=== PATIENT | male | born 1995 | race Caucasian/White ===

== ENCOUNTER 2017-11-17 21:02 | Emergency (ER) | payer OTHER ==
[2017-11-17] MEDS ORDERED: Midazolam* 1 MG/ML 5 ML VIAL (5 MG) SLOW PUSH ONE (21:55)
[2017-11-17] MEDS ORDERED: NS 0.9% 1000 ML* 1,000 ML IV ONE (21:56)
[2017-11-17] MEDS ORDERED: fentaNYL* 50 MCG/ML 2 ML VIAL (100 MCG VIAL) IV SLOW PU ONE (21:56)
[2017-11-17] MEDS ORDERED: Midazolam* 1 MG/ML 10 ML VIAL (10 MG) ONE (22:13)
[2017-11-17] MEDS ORDERED: Midazolam* 1 MG/ML 10 ML VIAL (10 MG) IV ONE (22:34)
--- NOTE | 2017-11-17 23:25 | ED ---
Sanjiv Bianchi Gabriel, scribed for Ghulam Shepherd MD on 11/17/17 at 2150 . 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 The patient rates the pain 10/10 in severity. Patient reports numbness and tingling in his finger. Patient reports that he was snow skiing and made a jump, coming down landing on right shoulder. - History of Current Complaint Chief Complaint: EDShoulderClavicleInj Stated Complaint: RT SHOULDER INJURY Time Seen by Provider: 11/17/17 21:37 Hx Obtained From: Patient Mechanism Of Injury: Blunt Trauma Timing: Constant Severity Initially: Severe Severity Currently: Severe Pain Location: Shoulder - right Associated Signs & Symptoms: Positive: Numbness/Tingling - Allergies/Home Medications Allergies/Adverse Reactions: Allergies Allergy/AdvReac Type Severity Reaction Status Date / Time No Known Allergies Allergy Unverified 11/28/13 15:15 PMH/Surg Hx/FS Hx/Imm Hx Endocrine/Hematology History: Denies: Hx Diabetes, Hx Thyroid Disease Cardiovascular History: Reports: Hx Hypertension Denies: Hx Hypercholesterolemia, Hx Peripheral Vascular Disease Musculoskeletal History: Denies: Hx Arthritis, Hx Osteoporosis Sensory History: Denies: Hx Cataracts, Hx Contacts or Glasses, Hx Glaucoma Opthamlomology History: Denies: Hx Cataracts, Hx Contacts or Glasses, Hx Glaucoma Neurological History: Denies: Hx Headaches, Hx Seizures, Hx Transient Ischemic Attacks (TIA) Psychiatric History: Denies: Hx Anxiety, Hx Depression Infectious Disease History: No Infectious Disease History: Denies: Traveled Outside the [place] in Last 30 Days - Family History Known Family History: Negative: Hypertension, Seizure Disorder - Social History Lives: With Family Alcohol Use: Occasionally Hx Substance Use: No Hx Tobacco Use: No Smoking Status (MU): Never Smoked Tobacco Review of Systems Positive: Other - pain in right shoulder Positive: Numbness - and tingling All Other Systems Reviewed And Are Negative: Yes Physical Exam - Summary Physical Exam Summary: VITAL SIGNS: Reviewed. GENERAL: Patient is a well-developed and nourished male who is lying comfortable in the stretcher. Patient is not in any acute respiratory distress. HEAD AND FACE: No signs of trauma. No ecchymosis, hematomas or skull depressions. No sinus tenderness. EYES: PERRLA, EOMI x 2, No injected conjunctiva, no nystagmus. EARS: Hearing grossly intact. Ear canals and tympanic membranes are within normal limits. MOUTH: Oropharynx within normal limits. NECK: Supple, trachea is midline, no adenopathy, no JVD, no carotid bruit, no c- spine tenderness, neck with full ROM. CHEST: Symmetric, no tenderness at palpation LUNGS: Clear to auscultation bilaterally. No wheezing or crackles. CVS: Regular rate and rhythm, S1 and S2 present, no murmurs or gallops appreciated. ABDOMEN: Soft, non-tender. No signs of distention. No rebound no guarding, and no masses palpated. Bowel sounds are normal. EXTREMITIES: deformity over the right shoulder with compression. Loss of conture of the right should. Neurological and cardiovascular intact. NEURO: Alert and oriented x 3. No acute neurological deficits. Speech is normal and follows commands. SKIN: Dry and warm Triage Information Reviewed: Yes Vital Signs On Initial Exam: Initial Vitals Temp Pulse Resp BP Pulse Ox 100.4 F 96 18 143/97 98 11/17/17 21:18 11/17/17 21:18 11/17/17 21:18 11/17/17 21:18 11/17/17 21:18 Vital Signs Reviewed: Yes Procedures - Joint Reduction Joint Reduction Site: shoulder (R) Conscious Sedation: Yes Reduction Attempts: 1 Pre-Procedure NV Exam: Yes Post Joint Reduction Film: joint reduced Diagnostics - Vital Signs Vital Signs Temp Pulse Resp BP Pulse Ox 11/17/17 21:18 100.4 F 96 18 143/97 98 - Laboratory Lab Statement: Any lab studies that have been ordered have been reviewed, and results considered in the medical decision making process. 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 The patient rates the pain 10/10 in severity. Patient reports numbness and tingling in his finger. Patient reports that he was snow skiing and made a jump , coming down landing on right shoulder. Shoulder Xray reveals, anterior shoulder dislocation. Shoulder Xray post reduction reveals, shoulder was successfully reduced no fracture. In the ED course the patient was given fentanyl, versed, and IV fluids. Patient will be discharged with a sling and follow up from Dr. Castellon. The patient is agreeable with this plan. - Diagnoses Provider Diagnoses: Anterior dislocation of right shoulder Discharge - Discharge Plan Condition: Stable Disposition: HOME Patient Education Materials: Shoulder Dislocation (ED) Referrals: Dayton Castellon MD [Medical Doctor] - 2 Days Nithin Stanley MD [Medical Doctor] - Additional Instructions: RETURN TO EMERGENCY DEPARTMENT FOR ANY NEW OR WORSENING SYMPTOMS The documentation as recorded by the Sanjiv asif Gabriel accurately reflects the service I personally performed and the decisions made by me, Ghulam Shepherd MD.
[2017-11-17 23:27] VITALS: BP 145/90
--- NOTE | 2017-11-18 07:14 | RAD ---
INDICATION: Right shoulder pain. TECHNIQUE: 4 views of the right shoulder were obtained. FINDINGS: There is anterior subcoracoid dislocation of the humeral head. There is a Hill-Sachs fracture present. IMPRESSION: ANTERIOR DISLOCATION OF THE HUMERUS WITH HILL-SACHS FRACTURE.
--- NOTE | 2017-11-18 07:23 | RAD ---
INDICATION: Right shoulder dislocation status post external reduction. COMPARISON: Comparison is made with prior study from November 17, 2007. TECHNIQUE: 2 views of the right shoulder were obtained. FINDINGS: The patient is status post external reduction. The bones are in normal alignment. Again note is made of a Hill-Sachs fracture. IMPRESSION: 1. STATUS POST EXTERNAL REDUCTION. THE BONES ARE IN NORMAL ALIGNMENT. 2. HILL-SACHS FRACTURE.
== END 2017-11-17 23:35 | disposition home or self-care (01) ==
LOC: ED 21:02
DX: S43.004A Unspecified dislocation of right shoulder joint, initial encounter (principal); W00.9XXA Unspecified fall due to ice and snow, initial encounter; Y93.24 Activity, cross country skiing; Y92.89 Other specified places as the place of occurrence of the external cause; Z86.79 Personal history of other diseases of the circulatory system
CPT/HCPCS: 96374; 99283; J2250; J3010

== ENCOUNTER 2018-08-05 07:16 | Day surgery (SDC) | payer OTHER ==
[2018-08-05] MEDS ORDERED: Midazolam* 1 MG/ML 5 ML VIAL (5 MG) ONE (07:56)
[2018-08-05] MEDS ORDERED: Rocuronium* 10 MG/ML VIAL ONE (07:56)
[2018-08-05] MEDS ORDERED: fentaNYL* 50 MCG/ML 2 ML VIAL (100 MCG VIAL) ONE ×2 (07:56→11:08)
[2018-08-05] MEDS ORDERED: ceFAZolin 2 GM in NS PREMIX(*) 2 GM/100 ML BAG IVPB ONE (08:02)
[2018-08-05] MEDS ORDERED: EPINEPHRINE 1 MG/ML 1 ML VIAL ONE (08:05)
[2018-08-05] MEDS ORDERED: Bupivacaine 0.25% EPI 200,000* 30 ML SDV ONE (08:05)
[2018-08-05] MEDS ORDERED: ROPIVACAINE 5 MG/ML 30 ML BTL (0.5%) ONE ×2 (08:22→08:23)
[2018-08-05] MEDS ORDERED: Lidocaine 1%* 5 ML VIAL ONE ×2 (08:22→08:23)
[2018-08-05] MEDS ORDERED: Ondansetron INJ* 2 MG/ML VIAL IV PRN (09:59)
[2018-08-05] MEDS ORDERED: Naloxone* 0.4 MG/ML 1 ML VIAL IV PRN (09:59)
[2018-08-05] MEDS ORDERED: DiMENhydriNATE IV* 50 MG/ML VIAL IV PUSH PRN (09:59)
[2018-08-05] MEDS ORDERED: HYDROcodone/ACETAMIN 5-325 MG* 1 TAB PO PRN (09:59)
[2018-08-05] MEDS ORDERED: Acetaminophen TAB* 325 MG PO PRN (09:59)
[2018-08-05] MEDS ORDERED: Morphine INJ* 2 MG/ML 1 ML SYRINGE (TWO MG - NEW SYRINGE VERSION) IV PRN (09:59)
[2018-08-05] MEDS ORDERED: fentaNYL* 50 MCG/ML 2 ML VIAL (100 MCG VIAL) IV PRN (09:59)
[2018-08-05] MEDS ORDERED: Propofol* 10 MG/ML 20 ML BTL IV PUSH ONE (10:36)
[2018-08-05] MEDS ORDERED: Dexamethasone IV* 4 MG/ML 1 ML (4 MG) ONE (10:36)
[2018-08-05] MEDS ORDERED: Ondansetron INJ* 2 MG/ML VIAL ONE (10:52)
[2018-08-05] MEDS ORDERED: HYDROcodone/ACETAMIN 5-325 MG* 1 TAB ONE (12:24)
[2018-08-05 12:39] VITALS: BP 151/91
--- NOTE | 2018-08-07 12:36 | OP ---
OPERATIVE REPORT: DATE OF OPERATION: 08/05/18 DATE OF : 89 SURGEON: Dayton Castellon MD BLENDING TANK HELPER: KAYLAH Pringle A physician chemistry research assistant was required for the length of procedure for assistance with positioning, instr umentation, retraction, and closure. ANESTHESIOLOGIST: Dwayne Webster MD ANESTHESIA: General anesthesia, regional interscalene block anesthesia. PRE-OP DIAGNOSES: 1. Left shoulder recurrent anterior instability. 2. Left shoulder anterior labral tear. 3. Left shoulder Hill-Sachs humeral head deformity. POST-OP DIAGNOSES: 1. Left shoulder recurrent anterior instability. 2. Left shoulder anterior labral tear. 3. Left shoulder Hill-Sachs humeral head deformity. OPERATIVE PROCEDURE: Left shoulder arthroscopic anterior capsulolabral repair. INDICATIONS: The patient is a 23-year-old man, right-hand dominant, recent graduate at the [employer], who currently works for the [employer] and lives with his parents [facility], who presented to me in clinic with bilateral recurrent glenohumeral joint instability episodes. He had had 3 instability events with his left and 2 instability events with his right shoulder. Left shoulder instability events occurred with skiing, roughhousing, and swimming. MRI arthrogram showed a likely anterior labral tear and a Hill-Sachs deformity. I measured Hill-Sach s deformity of the left humeral head. While it was wide, approximately 22.5 mm on one slice, it was never deeper than 1 or 1.5 mm, below the 3-mm threshold generally quoted for remplissage. The patient opted for surgical management. I signed him up for an arthroscopic anterior labral repai r and possible remplissage procedure. I also consented him as well for a possible biceps tenodesis s hould there be a large superior labral tear or biceps injury. I discussed risks and potential complications of surgery including bleeding, infection, nerve or bloo d vessel injury, shoulder pain, stiffness, recurrence of instability. IV FLUIDS: 1000 cc crystalloid. ANTIBIOTICS: Ancef 2 g IV. [id number] TIME: 96 minutes. ARTHROSCOPIC FLUID UTILIZATION: Seven bags each with 3 L for a total of 21 L. SPECIMEN: None. IMPLANTS: Mitek Gryphon suture anchors x4. COMPLICATIONS: None. ESTIMATED BLOOD LOSS: Minimal. DESCRIPTION OF PROCEDURE: In preoperative holding, the patient signed a written consent. Operative extremity was marked in the preoperative holding. The patient underwent a regional interscalene bloc k. The patient was brought back to the operating room and placed supine on the operating room table. Sedated and intubated. An exam under anesthesia showed full range of motion. This was conducted a fter a mini time-out had been performed. Anterior apprehension tests produced no instability, no clu nk. A full abduction and external rotation position likewise produced no clunk. This provided addit ional support for not proceeding with a remplissage component to the procedure. The patient was converted to the lateral decubitus position. Villa bag was hardened. Axillary roll w as placed. All bony prominences were padded. The left shoulder was placed in longitudinal traction with the appropriate amount of forward flexion and abduction. I used 15 pounds. The left shoulder was prepped and draped. Surgical time-out was performed. Left shoulder was infuse d with 30 cc of normal saline using a spinal needle from posterior. I then established a posterior g lenohumeral joint portal. I started my diagnostic arthroscopy. No articular cartilage lesions. No clear wear of the anterior rim of the glenoid. I did inspect the humeral head Hill-Sachs deformity. It was not deeper than anticipated on preoperative imaging. Continued diagnostic arthroscopy. No significant superior labral tear or biceps pathology noted. I did note that the anterior labrum was at first difficult to appreciate. It had clearly medialized on the anterior glenoid rim, consistent with chronic tear and medialization, ALPSA. Introduced lateral traction faustino device, Manning and Nephew. I next made my anteroinferior portal reynaldo millan standard technique. This was done under direct visualization. I placed a 7-mm Arthrex plastic can nula in that location. I next placed my anterosuperior portal and placed my arthroscope through it. I next placed a new posterior portal and placed a 7-mm Arthrex cannula through it. I inspected derrelli n the Hill-Sachs deformity. I did not change my thoughts on it being mild and not requiring rempliss age. I evaluated the anterior labrum, which did appear torn and medialized. I loosened up the labrum using a Liberator device and an arthroscopic shaver, peeling it back off the labrum and freeing it up so that it would mobilize nicely. I prepared the bone as well with the arth roscopic shaver. I used a grasper and demonstrated that the labrum was sufficiently mobile to perfor m a good labral repair. While viewing from anterosuperior, I placed 4 Mitek Gryphon suture anchors from the anteroinferior po rtal. Each of those was doubly loaded but I removed 1 suture from each and placed 1 horizontal mattr ess stitch from each anchor. The first anchor, placed at the 6 o'clock position, I passed 1 stitch r etrograde from posterior and the other from anteroinferior. I used the Mitek Fenton suture passer wit shanti ELY metal to perform those horizontal mattress stitches. I placed the first 2 anchors through my anteroinferior portal, then I placed the third and fourth anchors through a percutaneous stab incisio n to get a better angle towards the glenoid surface. After 4 horizontal mattress stitches had been placed, I really liked the labral bumper that I created and the tautness of the anterior capsule. I made sure to get bites of both capsule and labrum with all of my passes with the Fenton suture passer. This repair had clearly moved the humeral head into a more centered position from anteroposterior on the glenoid. I next assessed the Hill-Sachs one additional time and decided that a remplissage again was not requi red. Removed fluid and instruments from the glenohumeral joint. Closed surgical incisions with figure-of- eight and twelve stitches using nylon 3-0 suture. Xeroform, 4x4s, ABD, foam tape. Sling with abducti on pillow was applied as was a cooling unit. DISPOSITION: The patient was awakened and extubated and brought to the PACU. Discharge home when med ically stable. The patient will follow up with me in 10 to 14 days postoperatively. The patient was written for Percocet to take as needed for pain control and aspirin b.i.d. x2 weeks for DVT prophyla xis. Wound care instructions were provided. The patient will start physical therapy immediately. [id number]/[facility] #: [id number]
== END 2018-08-05 13:20 | disposition home or self-care (01) ==
LOC: OR 07:16
PROVIDERS: ATTEND Orthopaedic Surgery
DX: M25.312 Other instability, left shoulder (principal); S43.492A Other sprain of left shoulder joint, initial encounter; S42.295A Other nondisplaced fracture of upper end of left humerus, initial encounter for closed fracture; X58.XXXA Exposure to other specified factors, initial encounter; Y92.89 Other specified places as the place of occurrence of the external cause; G89.18 Other acute postprocedural pain; F90.9 Attention-deficit hyperactivity disorder, unspecified type
CPT/HCPCS: J0690; J1100; J2250; J2405; J2704; J2795; J3010

== ENCOUNTER 2018-12-06 14:50 | Emergency (ER) | payer OTHER ==
[2018-12-06] MEDS ORDERED: Morphine VIAL* 10 MG/ML 1 ML VIAL IM ONE (15:08)
[2018-12-06] MEDS ORDERED: Morphine VIAL* 10 MG/ML 1 ML VIAL ONE (15:09)
[2018-12-06] MEDS ORDERED: Propranolol IV* 1 MG/ML 1 ML VIAL IV PUSH ONE (15:28)
[2018-12-06] MEDS ORDERED: Propofol* 10 MG/ML 20 ML BTL IV PUSH ONE (15:53)
[2018-12-06] MEDS ORDERED: Propofol* 500 MG/50 ML BTL ONE (15:53)
--- NOTE | 2018-12-06 16:10 | CONSULT ---
Consult Consult: I supervised the care of the physician nurse practitioner physicians assistant and I performed a history and physical on this patient. I assisted with the close reduction and I performed the residual sedation for his procedure. History: Patient with a history of shoulder dislocation with pain, deformity of the right shoulder while trying to put on his jacket. Physical exam: Squared off deformity of the right shoulder with limited range of motion. Neurovascular intact at the deltoid and distally. Plan: Close reduction under procedural sedation, successful reduction. Procedural sedation performed by me: The patient was formerly consented and a timeout was performed. The patient was placed on full cardiopulmonary monitoring including end-tidal CO2. IV was established and the patient was given a total of 2.5 mg/kg of propofol for a total of 190 mg. This produced adequate sedation for the closed reduction procedure. The procedure was performed successfully and total sedation time was 4 minutes. He tolerated this well, recovered uneventfully. There were no complications. Close reduction procedure was performed by the physician nurse practitioner physicians assistant and assisted by me. The extremity is neurovascularly intact and the deformity was reduced. Post procedure x-ray is pending. He was placed in a shoulder sling.
[2018-12-06 17:11] VITALS: BP 117/67
--- NOTE | 2018-12-11 08:19 | ED ---
Upper Extremity Pain - HPI Summary HPI Summary: Patient is a 23yo M presenting to the ED with R sided shoulder dislocation after attempt at putting on his jacket. He has had 2 prior episodes of shoulder dislocations and has been seen by Dr. Castellon. He endorses pain to the anterior portion of his shoulder and has been unable to move the arm since he attempted to place on his jacket. Denies any other symptoms. Denies numbness or tingling. Denies color or temperature changes. 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 - History of Current Complaint Chief Complaint: Tremaine Stated Complaint: SHOULDER INJURY Time Seen by Provider: 12/06/18 14:57 Hx Obtained From: Patient Mechanism Of Injury: Twisted Onset/Duration: Started Hours Ago Timing: Constant Severity Initially: Moderate Severity Currently: Moderate Pain Location: Shoulder Character: Aching Aggravating Factor(s): Movement, Lifting, Flexion, Internal/External Rotation Alleviating Factor(s): Rest, Ice Associated Signs & Symptoms: Negative: Swelling, Redness, Bruising, Numbness/ Tingling Related History: Dominant Hand Right - Risk Factors Non-Orthopedic Risk Factor: Negative DVT Risk Factors: Negative Septic Arthritis Risk Factor: Negative Compartment Syndrome Risk Factors: Pain - Allergies/Home Medications Allergies/Adverse Reactions: Allergies Allergy/AdvReac Type Severity Reaction Status Date / Time No Known Allergies Allergy Verified 08/05/18 08:07 Home Medications: Home Medications Dextroamphetamine/Amphetamine [Adderall Xr 20 mg Capsule] 20 mg PO DAILY [History Confirmed 12/06/18] PMH/Surg Hx/FS Hx/Imm Hx Previously Healthy: Yes Endocrine/Hematology History: Denies: Hx Diabetes, Hx Thyroid Disease Cardiovascular History: Denies: Hx Hypercholesterolemia, Hx Hypertension, Hx Pacemaker/ICD, Hx Peripheral Vascular Disease History: Denies: Hx Renal Disease Musculoskeletal History: Reports: Other Musculoskeletal History - RIGHT SHOULDER DISLOCATION WITHIN THE LAST YEAR-ADDRESSING AFTER SURGERY Denies: Hx Arthritis, Hx Osteoporosis Sensory History: Reports: Hx Contacts or Glasses - INSTRUCTS GIVEN Denies: Hx Cataracts, Hx Glaucoma, Hx Hearing Aid Opthamlomology History: Reports: Hx Contacts or Glasses - INSTRUCTS GIVEN Denies: Hx Cataracts, Hx Glaucoma Neurological History: Denies: Hx Headaches, Hx Seizures, Hx Transient Ischemic Attacks (TIA) Psychiatric History: Denies: Hx Anxiety, Hx Depression, Hx Panic Disorder - Surgical History Surgery Procedure, Year, and Place: CYST REMOVED FROM THROAT AGE 5 Hx Anesthesia Reactions: No - Immunization History Hx Pertussis Vaccination: No Immunizations Up to Date: Yes Infectious Disease History: No Infectious Disease History: Denies: Traveled Outside the [place] in Last 30 Days - Family History Known Family History: Negative: Hypertension, Seizure Disorder - Social History Occupation: Unemployed Lives: With Family Alcohol Use: Occasionally Hx Substance Use: No Substance Use Type: Reports: None Hx Tobacco Use: No Smoking Status (MU): Never Smoked Tobacco Have You Smoked in the Last Year: No Review of Systems Constitutional: Negative Negative: Fever, Chills, Fatigue, Skin Diaphoresis Negative: Palpitations, Chest Pain Negative: Shortness Of Breath, Cough Genitourinary: Negative Positive: no symptoms reported, see HPI Positive: Arthralgia, Myalgia Skin: Negative Neurological: Negative All Other Systems Reviewed And Are Negative: Yes Physical Exam Triage Information Reviewed: Yes Vital Signs On Initial Exam: Initial Vitals Temp Pulse Resp BP Pulse Ox 98.4 F 87 16 167/107 98 12/06/18 14:54 12/06/18 14:54 12/06/18 14:54 12/06/18 14:54 12/06/18 14:54 Vital Signs Reviewed: Yes Appearance: Positive: Well-Appearing Skin: Positive: Warm, Skin Color Reflects Adequate Perfusion Head/Face: Positive: Normal Head/Face Inspection Neck: Positive: No Lymphadenopathy Respiratory/Lung Sounds: Positive: Clear to Auscultation, Breath Sounds Present Musculoskeletal: Positive: Pain @ - right shoulder Neurological: Positive: Speech Normal Psychiatric: Positive: Affect/Mood Appropriate AVPU Assessment: Alert Procedures - Joint Reduction Right Joint Reduction Site: shoulder (R) Conscious Sedation: Yes - Propofol Pre-Procedure NV Exam: Yes Post Joint Reduction Film: joint reduced Diagnostics - Vital Signs Vital Signs Temp Pulse Resp BP Pulse Ox 12/06/18 17:11 98.2 F 74 15 117/67 98 12/06/18 16:57 77 128/90 99 12/06/18 16:40 83 118/77 98 12/06/18 16:24 81 129/88 98 12/06/18 16:11 80 149/90 97 12/06/18 16:00 92 99 12/06/18 15:58 83 169/109 99 12/06/18 15:41 27 12/06/18 15:11 15 12/06/18 14:54 98.4 F 87 16 167/107 98 - Laboratory Lab Statement: Any lab studies that have been ordered have been reviewed, and results considered in the medical decision making process. - Radiology No standard instances Radiology Interpretation Completed By: ED Physician - Anterior and inferior joint dislocation - read by Daylin Newsome PA-C, Radiologist Post reduction Radiology Interpretation Completed By: Radiologist Course/Dx - Course Course Of Treatment: Patient is evaluated for right shoulder dislocation. Prominent acromion. externally rotated shoulder. Xray shows anterior and inferior dislocation of the R shoulder (read by Daylin Newsome PA-C). Patient is given propofol, conscious sedation note by Dr. Love, (separate note) with good effect. Reduction successful by Upright technique. Scapular movement medially with pushing the acromion inferiorly and rotating scapula. Gentle downward traction of the arm. Post reduction xrays shows successful reduction. Patient will follow up with orthopedics. Shoulder sling given. Return precautions. - Diagnoses Provider Diagnoses: Shoulder dislocation Discharge - Sign-Out/Discharge Documenting (check all that apply): Patient Departure - Discharge Plan Condition: Stable Disposition: HOME Patient Education Materials: Shoulder Dislocation (ED) Referrals: Armin Bateman MD [Primary Care Provider] - Dayton Castellon MD [Medical Doctor] - 3 Days Additional Instructions: Please follow up with Dr. Castellon this or next week Keep arm in splint - Billing Disposition and Condition Condition: STABLE Disposition: Home
== END 2018-12-06 17:11 | disposition home or self-care (01) ==
LOC: ED 14:50
DX: S43.004A Unspecified dislocation of right shoulder joint, initial encounter (principal); X58.XXXA Exposure to other specified factors, initial encounter; Y92.9 Unspecified place or not applicable
CPT/HCPCS: 96372; 96374; 99284; J1800; J2270; J2704